=== PATIENT | female | born 1985 | race Caucasian/White ===

== ENCOUNTER 2019-02-17 17:19 | Emergency (ER) | payer OTHER ==
[~2019-02-17] VITALS: Ht 170.2 cm; Wt 90.7 kg
[~2019-02-17 17:19] MED LIST: AMOX1TAB12 PO; KETO10TA2 PO
== END 2019-02-17 20:49 | disposition home or self-care (01) ==
LOC: ER 17:19
DX: N61.1 Abscess of the breast and nipple (principal)

== ENCOUNTER 2019-11-02 10:14 | Emergency (ER) | payer OTHER ==
[~2019-11-02] VITALS: Ht 170.2 cm; Wt 86.6 kg
== END 2019-11-02 13:48 | disposition home or self-care (01) ==
LOC: ER 10:14
DX: B34.8 Other viral infections of unspecified site (principal); B96.0 Mycoplasma pneumoniae [M. pneumoniae] as the cause of diseases classified elsewhere

== ENCOUNTER 2020-03-27 10:16 | Day surgery (SDC) | payer OTHER | END 2020-03-27 17:20 | disposition home or self-care (01) | LOC: CIR.AMB 10:16 → ADM 10:30 → CIR.AMB 17:20 | PROVIDERS: ATTEND Obstetrics & Gynecology Obstetrics | DX: N87.1 Moderate cervical dysplasia (principal) ==